=== PATIENT | female | born 1975 ===

== ENCOUNTER 2024-12-28 08:00 | Day surgery (SDC) | payer OTHER ==
[2024-12-22 08:15] VITALS: BP 135/88
[~2024-12-28] VITALS: Ht 152.4 cm; Wt 74.8 kg
[~2024-12-28 08:00] MED LIST: SYNTHROID75 MCG PO
[2024-12-28] MEDS ORDERED: CEFOXITIN SODIUM 2,000 MG VIAL IV ONE (10:59)
[2024-12-28] MEDS ORDERED: POVIDONE-IODINE 118 ML BOTT TOP ONE (11:38)
[2024-12-28] MEDS ORDERED: MONODOX100 MG PO (12:30)
[2024-12-28] MEDS ORDERED: MORPHINE SULFATE 4 MG/ML VIAL IV PRN (12:30)
[2024-12-28] MEDS ORDERED: NAPR500T14 PO (12:30)
[2024-12-28] MEDS ORDERED: PROMETHAZINE HCL 50 MG/ML AMPUL IM ONE (12:30)
== END 2024-12-28 17:35 | disposition home or self-care (01) ==
LOC: CIR.AMB 08:00
PROVIDERS: ATTEND Obstetrics & Gynecology
DX: D25.0 Submucous leiomyoma of uterus (principal); N93.8 Other specified abnormal uterine and vaginal bleeding; N84.0 Polyp of corpus uteri

== ENCOUNTER 2025-02-09 11:15 | Inpatient (IN) | payer OTHER ==
[~2025-02-09] VITALS: Ht 152.4 cm; Wt 72.6 kg
[~2025-02-09 11:15] MED LIST changes: +MONODOX100 MG PO; +NAPR500T14 PO
[2025-02-09 12:40] VITALS: BP 115/79; BP 124/81
[2025-02-15] MEDS ORDERED: POVIDONE-IODINE 118 ML BOTT TOP ONE (14:03)
[2025-02-15] MEDS ORDERED: CLINDAMYCIN PHOSPHATE 150 MG/ML (600mg) IV ONE (14:45)
[2025-02-15] MEDS ORDERED: KETOROLAC TROMETHAMINE 60 MG VIAL IM ONE ×2 (15:45→18:08)
[2025-02-15] MEDS ORDERED: RINGERS SOLUTION,LACTATED 1,000 ML IV SCH (15:45)
[2025-02-15] MEDS ORDERED: ENALAPRILAT DIHYDRATE 1.25 MG/ML VIAL IV PRN (16:45)
[2025-02-15] MEDS ORDERED: ACETAMINOPHEN 500 MG GEL..CAP PO PRN (16:45)
[2025-02-15] MEDS ORDERED: ONDANSETRON HCL 2 MG/ML VIAL IV SCH (17:00)
[2025-02-15] MEDS ORDERED: MORPHINE SULFATE 4 MG/ML CARTRIDGE IV SCH (17:00)
[2025-02-15] MEDS ORDERED: SIMETHICONE 125 MG CAPSULE PO SCH (18:08)
[2025-02-15 18:37] VITALS: BP 124/81
[2025-02-15 20:00] VITALS: BP 109/72
[2025-02-15 20:06] LABS: BASO % 0.2 % (0.1-1.2); EOS # 0.05 (0.04-0.54); EOS % 0.5 % (0.7-7.0); LYMPH # 2.08 (1.18-3.74); LYMPH % 22.3 % (19.3-53.1); MEAN PLATELET VOLUME 10.30 fl (9.4-12.4); MONO # 0.62 (0.24-0.82); MONO % 6.7 % (4.7-12.5); NEUT # 6.53 (1.56-6.13); NEUT % 70.1 % (34.0-71.1); RED CELL DISTRIBUTION WIDTH 12.4 % (11.6-14.4)
[2025-02-15] MEDS ORDERED: FAMOTIDINE/PF 20 MG in 0.9 % SODIUM CHLORIDE 8 ML IV PUSH SCH (21:00)
[2025-02-16 02:34] VITALS: BP 104/66
[2025-02-16] MEDS ORDERED: LEVOTHYROXINE SODIUM 75 MCG TABLET PO SCH (06:00)
[2025-02-16] MEDS ORDERED: FAMOTIDINE/PF 20 MG/2 ML VIAL ONE (08:35)
[2025-02-16 08:51] VITALS: BP 105/69
[2025-02-16] MEDS ORDERED: NAPR500T14 PO (09:07)
[2025-02-16] MEDS ORDERED: Tylenol #3 PO (09:07)
== END 2025-02-16 11:11 | disposition home or self-care (01) | DRG 743 ==
LOC: O/R 02-15 09:34 → SURH 02-15 11:15 → OB/GYN 02-15 17:43
PROVIDERS: ADMIT Obstetrics & Gynecology; ATTEND Obstetrics & Gynecology
PROC: 0JQC0ZZ Repair Pelvic Region Subcutaneous Tissue and Fascia, Open Approach (ICD-10-PCS; 2025-02-15)
PROC: 0USG0ZZ Reposition Vagina, Open Approach (ICD-10-PCS; 2025-02-15)
PROC: 0TJB8ZZ Inspection of Bladder, Via Natural or Artificial Opening Endoscopic (ICD-10-PCS; 2025-02-15)
PROC: 0UT97ZZ Resection of Uterus, Via Natural or Artificial Opening (ICD-10-PCS; principal; 2025-02-15 13:00)
DX: D25.9 Leiomyoma of uterus, unspecified (principal); N80.03 Adenomyosis of the uterus; N72 Inflammatory disease of cervix uteri; N81.11 Cystocele, midline; N92.0 Excessive and frequent menstruation with regular cycle; D25.0 Submucous leiomyoma of uterus